=== PATIENT | male | born 1970 | race Caucasian/White ===

== ENCOUNTER 2017-08-20 12:58 | Emergency (ER) | payer BC ==
[2017-08-20 15:08] LABS: ADD MAN DIFF? NO
[2017-08-20 15:10] LABS: BASOPHIL # 0.1 10^3/ul (0.0-0.1); BASOPHILS % 0.5 % (0.0-2.0); EOSINOPHILS # 0.1 10^3/ul (0.0-0.5); EOSINOPHILS % 1.1 % (0.0-7.0); HEMOGLOBIN 13.8 g/dl (14.0-18.0); LYMPHOCYTES # 1.3 10^3/ul (0.8-2.9); LYMPHOCYTES % 13.1 % (15.0-51.0); MEAN CORPUSCULAR HEMOGLOBIN 29.8 pg (29.0-33.0); MEAN CORPUSCULAR HGB CONC 33.7 g/dl (32.0-37.0); MEAN CORPUSCULAR VOLUME 88.6 fl (82.0-101.0); MEAN PLATELET VOLUME 9.7 fl (7.4-10.4); MONOCYTE # 0.7 10^3/ul (0.3-0.9); MONOCYTES % 6.9 % (0.0-11.0); NEUTROPHIL # 7.7 10^3/ul (1.6-7.5); PLATELET COUNT 215 10^3/UL (140-415); RED BLOOD COUNT 4.63 10^6/ul (4.70-6.10)
[2017-08-20 15:10] LABS: WHITE BLOOD COUNT 9.9 10^3/ul (4.8-10.8)
[2017-08-20] MEDS: CLINDAMYCIN 600 MG/D5W (PMX) 50 ML IVPB (15:21)
[2017-08-20] MEDS: KETOROLAC 30 MG INJ IV (15:21)
[2017-08-20 15:34] LABS: ALANINE AMINOTRANSFERASE 32 IU/L (13-69); ALBUMIN 4.4 g/dl (3.3-4.9); ALBUMIN/GLOBULIN RATIO 1.12; ALKALINE PHOSPHATASE 90 IU/L (42-121); ANION GAP 18 (8-16); ASPARTATE AMINO TRANSFERASE 20 IU/L (15-46); BILIRUBIN,INDIRECT 0.4 mg/dl (0-1.1); BILIRUBIN,TOTAL 0.4 mg/dl (0.2-1.3); BLOOD UREA NITROGEN 11 mg/dl (7-20); CALCIUM 8.8 mg/dl (8.4-10.2); CARBON DIOXIDE 27 mmol/L (21-31); CHLORIDE 105 mmol/L (97-110); CREATININE 0.88 mg/dl (0.61-1.24); GLUCOSE 94 mg/dl (70-220); LIPASE 58 U/L (23-300); POTASSIUM 3.9 mmol/L (3.5-5.1); SODIUM 146 mmol/L (135-144); TOTAL PROTEIN 8.3 g/dl (6.1-8.1)
[2017-08-20 15:46] LABS: ADD UMIC YES; UR ASCORBIC ACID NEGATIVE (NEGATIVE); UR BILIRUBIN (Dip) NEGATIVE (NEGATIVE); UR BLOOD (Dip) 2+ mg/dL (NEGATIVE); UR CLARITY CLEAR (CLEAR); UR COLOR YELLOW (YELLOW); UR GLUCOSE (Dip) NEGATIVE (NEGATIVE); UR KETONES (Dip) NEGATIVE (NEGATIVE); UR LEUKOCYTE ESTERASE (Dip) NEGATIVE Leu/ul (NEGATIVE); UR MUCUS MODERATE /HPF (NONE SEEN); UR NITRITE (Dip) NEGATIVE (NEGATIVE); UR RBC 12 /HPF (0-5); UR SPECIFIC GRAVITY (Dip) 1.024 (1.003-1.030); UR TOTAL PROTEIN (Dip) 1+ mg/dl (NEGATIVE); UR UROBILINOGEN (Dip) NEGATIVE (NEGATIVE); UR WBC 4 /HPF (0-5)
== END 2017-08-20 16:26 | disposition home or self-care (01) ==
LOC: FTE 12:58
DX: L02.416 Cutaneous abscess of left lower limb (principal)
CPT/HCPCS: 36415; 80053; 81001; 83690; 85025; 87040; 96374; 96375; 99284-25

== ENCOUNTER 2017-11-04 12:07 | Emergency (ER) | payer BC | END 2017-11-04 14:30 | disposition home or self-care (01) | LOC: FTE 14:30 | DX: H92.01 Otalgia, right ear (principal); J06.9 Acute upper respiratory infection, unspecified | CPT/HCPCS: 99283; Z7502 ==